=== PATIENT | female | born 1940 | race Caucasian/White ===

== ENCOUNTER 2023-03-13 07:09 | Day surgery (SDC) | payer MEDICAID ==
[~2023-03-13] VITALS: Ht 170.2 cm; Wt 83.0 kg
[2023-03-13] MEDS ORDERED: MIDAZOLAM HCL 5 MG/5 ML VIAL ONE (07:13)
[2023-03-13] MEDS ORDERED: fentaNYL CITRATE/PF 100 MCG/2 ML AMP ONE (07:13)
[2023-03-13 12:25] VITALS: BP_SYST 127
== END 2023-03-13 09:38 | disposition home or self-care (01) ==
LOC: SOR 07:09 → SMU 07:10 → SOR 09:38
PROVIDERS: ATTEND Internal Medicine
DX: R19.4 Change in bowel habit (principal); D12.2 Benign neoplasm of ascending colon; D12.3 Benign neoplasm of transverse colon; K62.1 Rectal polyp; K64.8 Other hemorrhoids; Z85.038 Personal history of other malignant neoplasm of large intestine; I10 Essential (primary) hypertension; M06.9 Rheumatoid arthritis, unspecified; Z85.3 Personal history of malignant neoplasm of breast; Z96.642 Presence of left artificial hip joint; Z79.82 Long term (current) use of aspirin; Z79.899 Other long term (current) drug therapy
CPT/HCPCS: 45385; 88305; 99152; G0378; J2250; J3010